=== PATIENT | male | born 1990 | race Two or more races ===

== ENCOUNTER 2019-01-24 16:52 | Emergency (ER) | payer OTHER ==
[~2019-01-24] VITALS: Ht 182.9 cm; Wt 87.1 kg
[2019-01-24] MEDS ORDERED: MECL12.582 PO (17:04)
[2019-01-24] MEDS ORDERED: MECLIZINE HCL 25 MG TABLET ONE (17:09)
[2019-01-24] MEDS ORDERED: MECLIZINE HCL 25 MG TABLET PO ONE (17:15)
--- NOTE | 2019-01-24 17:45 | NUR ---
Patient states vertigo is "slightly better." Dr Roland aware
--- NOTE | 2019-01-24 18:31 | NUR ---
Patient out of unit for ct scan
--- NOTE | 2019-01-24 18:43 | NUR ---
Patient back from ct scan with no distress noted
--- NOTE | 2019-01-24 19:12 | NUR ---
Patient discharged to home in stable conditon. Written and verbal after care instructions given. Patient verbalizes understanding of instructions.
== END 2019-01-24 19:14 | disposition home or self-care (01) ==
LOC: ER 16:52
DX: R42 Dizziness and giddiness (principal); Z79.899 Other long term (current) drug therapy
CPT/HCPCS: 70450; A4663; J8597